=== PATIENT | female | born 1965 | race Caucasian/White ===

== ENCOUNTER 2019-12-24 09:32 | Inpatient (IN) | payer OTHER ==
[~2019-12-24] VITALS: Ht 165.1 cm; Wt 90.4 kg
[2019-12-24 11:08] LABS: HEMATOCRIT 54.4 % (36.0-47.0); HEMOGLOBIN 17.4 g/dl (12.0-15.5); MEAN CORPUSCULAR HEMOGLOBIN 27.8 pg (27.0-33.0); PLATELET COUNT, AUTOMATED 319 10^3/uL (150-450); RED BLOOD COUNT 6.25 10^6/uL (4.00-5.40); WHITE BLOOD COUNT 11.3 10^3/uL (4.0-10.0)
[2019-12-24] MEDS ORDERED: NS 1,000 ML IV ONE (11:30)
[2019-12-24 11:31] LABS: BLOOD UREA NITROGEN 17 MG/DL (7-18); CARBON DIOXIDE LEVEL 24 MEQ/L (21-32); CHLORIDE LEVEL 105 MEQ/L (98-107); CREATININE FOR GFR 0.64 MG/DL (0.55-1.30); GLOMERULAR FILTRATION RATE > 60.0 (>51); GLUCOSE, FASTING 140 MG/DL (70-100); POTASSIUM SERUM 4.4 MEQ/L (3.5-5.1); SODIUM LEVEL 138 MEQ/L (136-145)
--- NOTE | 2019-12-24 11:39 | REP ---
INDICATION: vertigo. COMPARISON: None. TECHNIQUE: Helical scanning is acquired. 5 mm axial images were reformatted. Coronal MPR images were generated. FINDINGS: Bone window settings show mild vascular calcification in the carotid siphons. No intraorbital abnormality is seen. No bony destructive lesion is seen. There is no CT evidence of paranasal sinus disease although aeration in the right mastoid is less than that in the left. On soft tissue window settings, there are multifocal areas of white matter hypointensity fairly extensively in the frontal and parietal lobes bilaterally. There is focal low density in the left basal ganglia and in the left temporal lobe periventricular white matter. There is no evidence of intracranial hemorrhage or mass. No extra-axial fluid collection or midline shift is seen. IMPRESSION: Multifocal white matter low-density lesions in the frontal lobes, parietal lobes and left temporal lobe. There is also focal low-density area in the basal ganglia on the left. These are nonspecific. There is slight vascular calcification. Differential possibilities include small vessel atherosclerotic changes as well as demyelinating disease. Is difficult to exclude subacute lacunar infarction in the basal ganglia and periventricular white matter of the left temporal lobe. Consider MRI scanning.. <Electronically signed by Perez Demarco > 12/24/19 [id number]
[2019-12-24] MEDS ORDERED: PROHANCE 279.3MG/ML 15ML VIAL As Ordered ONE (15:31)
--- NOTE | 2019-12-24 16:31 | REP ---
INDICATION: vertigo, demylinating disease. COMPARISON: None. TECHNIQUE: Axial and sagittal imaging planes are utilized for T1 and T2-weighted scans. Sequences include spin-echo, fast spin echo, FLAIR, and diffusion weighted sequences. IV contrast could not be given Cuzick patient was unable to complete the examination. FINDINGS: No bony calvarial lesion is seen. Craniocervical junction and upper cervical cord are normal in appearance. There is no MR evidence of significant paranasal sinus disease. No intraorbital abnormality is seen. There is no evidence of intracranial hemorrhage. No extra-axial fluid collection is seen. No mass lesion is observed. There are fairly extensive areas of periventricular white matter T2 hyperintensity in the frontal lobes bilaterally. There is an area of T2 hyperintensity in the periventricular white matter of the left temporal lobe as well. This area measures approximately 2.6 cm in diameter. Restricted diffusion is seen in this region on diffusion-weighted scans consistent with acute ischemia. No other evidence of restricted diffusion is seen. Exam is otherwise unremarkable. IMPRESSION: Findings consistent with an acute/subacute infarct in the periventricular white matter of the left temporal lobe posteriorly. No evidence of hemorrhage. Small vessel changes. <Electronically signed by Perez Demarco > 12/24/19 [id number]
[2019-12-24] MEDS ORDERED: ASPIRIN 325 MG TAB PO ONE (17:15)
[2019-12-24] MEDS ORDERED: hydrALAZINE 20MG/ML 1ML VIAL (J0360 PER 20MG) IV STA (17:55)
[2019-12-24] MEDS ORDERED: **hydrALAZINE** 10 MG TAB PO PRN (18:00)
[2019-12-24] MEDS ORDERED: NS 1,000 ML IV SCH (18:00)
[2019-12-24] MEDS ORDERED: ISOVUE-370 76% 100ML VIAL As Ordered ONE (18:25)
--- NOTE | 2019-12-24 19:04 | HPEPDOC ---
General Date of Admission Dec 24, 2019 at 17:43 Date of Service: Dec 24, 2019 Chief Complaint The patient is a 54-year-old female admitted with a reason for visit of CVA. Source: Patient History of Present Illness Mrs. Bowman is a 54 year old female who is here for vertigo and malaise. She hasn't seen a physician in years and does not take any medication. A couple days ago, she started to have vertigo, malaise, and overall feeling weak. She describes the vertigo as a spinning sensation with associated double vision. When she arrived to the ED, they had physical therapy work with her vertigo which did help. They ordered a CT head, which demonstrated multifocal white zack er low-density lesions in the frontal lobe, parietal lobes, and left temporal lobe. There is also focal low density area in the basal ganglia on the left. These are nonspecific and differential included small vessel atherosclerotic changes as well as demyelinating disease. Neurology was contacted by ED. Recommended vasculitis workup, hypercoagulable workup, transesophageal echocardiogram, and MRI without followed by with contrast. Patient was not able to complete contrast study due to claustrophobia. MRI did demonstrate an acute/subacute infarct in the periventricular white matter of the left temporal lobe posteriorly. Home Medications No Active Prescriptions or Reported Meds Allergies Coded Allergies: No Known Drug Allergies (Verified Allergy, Unknown, 12/24/19) Past Medical History Medical History Denies past medical history. Denies any diabetes, heart disease, or lung disease Surgical History Denies past surgical history Family History Both mother and father has history of heart disease Social History * Smoker: current smoker (smoked for 20 years, 1 pack per day) Alcohol: Denies Drugs: denies A-FIB/CHADSVASC A-FIB History Current/History of A-Fib/PAF?: No Review of Systems Constitutional: Denies: Chills, Fever Eyes: Reports: Vision change (double vision when she has the vertigo) ENT: Denies: Head Aches Skin: Denies: Rash Pulmonary: Denies: Dyspnea, Cough Cardiovascular: Denies: Chest Pain Gastrointestinal: Denies: Nausea, Vomiting, Abdominal Pain, Diarrhea, Constipation Genitourinary: Denies: Dysuria Hematologic: Denies: Bruising Neurological: Reports: Other Symptoms (vertigo) Physical Examination General Exam: Positive: Alert, Cooperative Eye Exam: Positive: EOMI; Negative: Sclera icteric ENT Exam: Positive: Atraumatic Neck Exam: Positive: Supple Chest Exam: Positive: Clear to auscultation; Negative: Rales, Rhonchi, Wheezing Heart Exam: Positive: Rate Normal, Regular Rhythm Abdomen Exam: Positive: Normal bowel sounds, Soft; Negative: Tenderness Extremity Exam: Negative: Cyanosis, Edema Neuro Exam: Positive: Normal Gait, Normal Speech, Strength at 5/5 X4 ext, Cranial Nerves 3-12 NL Psych Exam: Positive: Mental status NL, Mood NL Vital Signs Vital Signs Date Time Temp Pulse Resp B/P (MAP) Pulse Ox O2 Delivery O2 Flow Rate FiO2 12/24/19 17:47 63 95 12/24/19 17:45 97.0 16 184/83 (116) Room Air Laboratory Data Labs 24H Laboratory Tests 2 12/24/19 10:53: Nucleated Red Blood Cells % (auto) 0.0, Anion Gap 9, Glomerular Filtration Rate > 60.0, Calcium Level 10.0 CBC/BMP Laboratory Tests 12/24/19 10:53 Assessment/Plan Mrs. Bowman is a 54 year old female who is here for vertigo and malaise and found to have an ischemic stroke. Neurology has been consulted. Recommended trans- esophageal echocardiogram, vascular workup, and hypercarbic workup. Also recommended maintain systolic blood pressure between 180 and 140. Patient did receive full dose aspirin in the ED. We will continue with 81 mg aspirin daily and high-dose statin. Plan / VTE VTE Prophylaxis Ordered?: Yes Plan Plan 1. CVA -Neurology consulted, recommendations appreciated -Transesophageal echocardiogram -CTA of head since patient cannot tolerate MRI -Received full dose aspirin, continue 81 mg of aspirin daily -High-dose statin -Vascular workup and hypercoagulable workup -Physical therapy 2. Vertigo -Physical therapy 3. Hypertension -Since have recent stroke, maintain systolic blood pressure between 180 and 140 4. Erythrocytosis -On admission hemoglobin was 17.4 -May be concentrated. Continue to follow 5. DVT prophylaxis -SCDs and teds ERNESTO VALDEZ DO Dec 24, 2019 19:04
--- NOTE | 2019-12-24 19:26 | REPVR ---
PROCEDURE INFORMATION: Exam: CT Angiography Head With Contrast Exam date and time: 12/24/2019 6:37 PM Age: 54 years old Clinical indication: Pain; Headache; Additional info: CVA, unable to complete mri with contrast TECHNIQUE: Imaging protocol: Computed tomography angiography of the head with intravenous contrast. 3D rendering (Not supervised by radiologist): MIP and/or 3D reconstructed images were created by the technologist. Radiation optimization: All CT scans at this facility use at least one of these dose optimization techniques: automated exposure control; mA and/or kV adjustment per patient size (includes targeted exams where dose is matched to clinical indication); or iterative reconstruction. Contrast material: ISO 370; Contrast volume: 75 ml; Contrast route: INTRAVENOUS (IV); COMPARISON: CT Head without contrast 12/24/2019 11:03 AM FINDINGS: ANTERIOR CIRCULATION: Right internal carotid artery: Mild calcification involving the right carotid siphon without significant stenosis. Right middle cerebral artery: Unremarkable. No occlusion or significant stenosis. No aneurysm. Right anterior cerebral artery: Unremarkable. No occlusion or significant stenosis. No aneurysm. Left internal carotid artery: Mild calcification involving the left carotid siphon without significant stenosis. Left middle cerebral artery: Unremarkable. No occlusion or significant stenosis. No aneurysm. Left anterior cerebral artery: Unremarkable. No occlusion or significant stenosis. No aneurysm. POSTERIOR CIRCULATION: Right vertebral artery: Unremarkable. No occlusion or significant stenosis. No aneurysm. Left vertebral artery: Unremarkable. No occlusion or significant stenosis. No aneurysm. Basilar artery: Unremarkable. No occlusion or significant stenosis. No aneurysm. Right posterior cerebral artery: Unremarkable. No occlusion or significant stenosis. No aneurysm. Left posterior cerebral artery: Unremarkable. No occlusion or significant stenosis. No aneurysm. Brain: Left temporal ischemic infarct is better demonstrated on MRI. Cerebral ventricles: Normal. No ventriculomegaly. Bones/joints: Unremarkable. No acute fracture. Soft tissues: Unremarkable. IMPRESSION: No hemodynamically significant stenosis or large vessel occlusion. Electronically signed by: Del Dubois On 12/24/2019 19:25:56 PM
[2019-12-24 19:51] LABS: C REACTIVE PROTEIN QUANTITATIV 0.83 MG/DL (0.00-0.30)
[2019-12-24 20:30] VITALS: BP 118/65
--- NOTE | 2019-12-24 20:43 | ECGEPIP ---
[facility] - ED Test Date: 2019-12-24 Pat Name: SUJIT ANN Department: Room: - Gender: Female Planner: PRABHU : [id number] Requested By: STERLING Hudson Order Number: [id number] Reading MD: Sterling Carrasco Measurements Intervals [place] Rate: 85 P: 57 WA: 144 QRS: 7 QRSD: 102 T: 31 QT: 393 QTc: 468 Interpretive Statements SINUS RHYTHM Delayed anterior R wave progression Comparison tracing not on file Electronically Signed on 12-24-2019 20:42:48 EST by Sterling Carrasco
[2019-12-24] MEDS: ATORVASTATIN 20 MG TAB PO SCH (20:46)
[2019-12-25] MEDS ORDERED: ACETAMINOPHEN TAB 650MG DOSE (2X325MG) PO PRN (01:45)
[2019-12-25 02:00] VITALS: BP 143/71
[2019-12-25 06:00] VITALS: BP 132/57
[2019-12-25] MEDS: ASPIRIN 81 MG CHEW TABLET PO SCH (08:31)
[2019-12-25 10:00] VITALS: BP 138/59
[2019-12-25 14:00] VITALS: BP 143/60
[2019-12-25] MEDS ORDERED: SUGAMMADEX SODIUM 500 MG/5 ML VIAL (BRIDION) As Ordered ONE (15:21)
[2019-12-25] MEDS ORDERED: ONDANSETRON 4MG/2ML VIAL As Ordered ONE (15:21)
[2019-12-25] MEDS ORDERED: ROCURONIUM BROMIDE 50 MG/5 ML VIAL As Ordered ONE (15:21)
[2019-12-25] MEDS ORDERED: propofoL 200 MG/20 ML VIAL As Ordered ONE ×3 (15:21→18:28)
[2019-12-25] MEDS ORDERED: dexameTHASONE 4 MG/ML 1ML VIAL (J1100 PER 1MG) As Ordered ONE (15:21)
[2019-12-25] MEDS ORDERED: fentaNYL 100 MCG/2 ML INJECTION (J3010) As Ordered ONE ×2 (15:22→17:22)
[2019-12-25] MEDS ORDERED: MIDAZOLAM INJ 2MG/2ML VIAL (J2250 PER 1MG) As Ordered ONE ×2 (15:22→17:21)
[2019-12-25] MEDS ORDERED: LIDOCAINE 2% 100MG/5ML SDV (FOR ANES.) As Ordered ONE ×2 (15:24→17:25)
--- NOTE | 2019-12-25 15:33 | IPNPDOC ---
Subjective Date Seen The patient was seen on 12/25/19. Subjective Chief Complaint/HPI Mrs. Bowman is a 54 year old female who is here for vertigo and malaise and found to have acute/subacute infarct in the periventricular which matter of the left temporal lobe posteriorly. Today, she still had some vertigo, but not as severe as yesterday. Denies fever, chest pain, dyspnea, or dysuria. She tells me she has not yet had a BM in a week. Otherwise, she is scheduled for AGUSTIN today. Objective Physical Examination General Exam: Positive: Alert, Cooperative Eye Exam: Positive: EOMI; Negative: Sclera icteric ENT Exam: Positive: Atraumatic Neck Exam: Positive: Supple Chest Exam: Positive: Clear to auscultation; Negative: Rales, Rhonchi, Wheezing Heart Exam: Positive: Rate Normal, Regular Rhythm Abdomen Exam: Positive: Normal bowel sounds, Soft; Negative: Tenderness Extremity Exam: Negative: Cyanosis, Edema Neuro Exam: Positive: Normal Gait, Normal Speech, Strength at 5/5 X4 ext, Cr anial Nerves 3-12 NL Psych Exam: Positive: Mental status NL, Mood NL Assessment /Plan Assessment Mrs. Bowman is a 54 year old female who is here for vertigo and malaise and found to have an ischemic stroke. Neurology has been consulted. Recommended trans- esophageal echocardiogram, vascular workup, and hypercarbic workup. Also recommended maintain systolic blood pressure between 180 and 140. Patient did receive full dose aspirin in the ED. We will continue with 81 mg aspirin daily and high-dose statin. Plan/VTE VTE Prophylaxis Ordered?: Yes Plan 1. CVA -Neurology consulted, recommendations appreciated -Transesophageal echocardiogram scheduled today -CTA of head since patient cannot tolerate MRI. CTA of head is negative for stenosis or large vessel occlusion -Received full dose aspirin in ED, continue 81 mg of aspirin daily -High-dose statin -Vascular workup and hypercoagulable workup pending -Cleared physical therapy. Will need a script for 2WW and outpatient vestibular PT. 2. Vertigo -Physical therapy 3. Hypertension -Since have recent stroke, maintain systolic blood pressure between 180 and 140 4. Erythrocytosis -On admission hemoglobin was 17.4 -May be concentrated. Continue to follow 5. DVT prophylaxis -SCDs and teds Dispo: Pending AGUSTIN and neurology recommendations. On discharge, will need a script for 2WW and outpatient vestibular PT. VS, I&O, 24H, Fishbone Vital Signs/I&O Vital Signs Date Time Temp Pulse Resp B/P (MAP) Pulse Ox O2 Delivery O2 Flow Rate FiO2 12/25/19 14:00 98.3 70 17 143/60 (87) 98 Room Air I&O- Last 24 Hours up to 6 AM 12/25/19 05:59 Intake Total 1430 ml Output Total 200 ml Balance 1230 ml Laboratory Data 24H LABS Laboratory Tests 2 12/24/19 19:03: Erythrocyte Sedimentation Rate 6 12/25/19 10:21: Coronavirus (COVID-19)(PCR) NEGATIVE ERNESTO VALDEZ DO Dec 25, 2019 15:33
[2019-12-25] MEDS ORDERED: MIRALAX *UNIT DOSE* 17GM PACKET PO PRN (15:45)
[2019-12-25] MEDS ORDERED: LIDOCAINE VISCOUS 2% SOLN 15ML UDC As Ordered ONE (17:28)
[2019-12-25] MEDS ORDERED: CETACAINE SPRAY 5GM As Ordered ONE (17:28)
[2019-12-25] MEDS ORDERED: ISOVUE-370 76% 100ML VIAL As Ordered ONE (19:27)
[2019-12-25 19:42] VITALS: BP 154/61
[2019-12-25] MEDS ORDERED: SODIUM CHLORIDE 0.9% 1000ML IV ONE (21:15)
[2019-12-25] MEDS: ATORVASTATIN 20 MG TAB PO SCH (21:28)
[2019-12-25] MEDS: DOCUSATE SODIUM 100 MG CAP PO SCH (21:28)
[2019-12-25 22:00] VITALS: BP 149/65
--- NOTE | 2019-12-25 23:09 | REPVR ---
PROCEDURE INFORMATION: Exam: CT Angiography Neck With Contrast Exam date and time: 12/25/2019 7:32 PM Age: 54 years old Clinical indication: Other: Stroke TECHNIQUE: Imaging protocol: Computed tomography angiography of the neck with intravenous contrast. 3D rendering (Not supervised by radiologist): MIP and/or 3D reconstructed images were created by the technologist. Radiation optimization: All CT scans at this facility use at least one of these dose optimization techniques: automated exposure control; mA and/or kV adjustment per patient size (includes targeted exams where dose is matched to clinical indication); or iterative reconstruction. Contrast material: ISOVUE 370; Contrast volume: 75 ml; Contrast route: INTRAVENOUS (IV); COMPARISON: CT ANGIO HEAD 2019-12-24 18:25 FINDINGS: Right common carotid artery: Mild atherosclerotic plaque in the predominately distal right common carotid artery and the bifurcation. Right internal carotid artery: Mild atherosclerotic plaque in the carotid bulb and proximal right internal carotid artery with less than 50% stenosis by NASCET criteria. Right external carotid artery: Mild atherosclerotic plaque at the right external carotid artery origin. Right vertebral artery: No stenosis. No dissection or occlusion. Left common carotid artery: Mild atherosclerotic plaque in the predominately distal left common carotid artery and the bifurcation. Left internal carotid artery: Mild atherosclerotic plaque in the proximal left internal carotid artery and carotid bulb with less than 50% stenosis by NASCET criteria. Left external carotid artery: Mild atherosclerotic plaque at the left external carotid artery origin. Left vertebral artery: No stenosis. No dissection or occlusion. Bones/joints: No acute fracture. Soft tissues: Normal. No significant soft tissue swelling. IMPRESSION: Mild bilateral proximal ICA atherosclerotic disease with less than 50% stenosis. REFERENCES: NASCET CRITERIA. The degree of internal carotid artery stenosis is based on NASCET criteria. Normal is no stenosis. Mild is less than 50% stenosis. Moderate is 50-69% stenosis. Severe is 70% to 99% stenosis. Total occlusion is no detectable patent lumen. Electronically signed by: Sterling Paige On 12/25/2019 23:09:36 PM
[2019-12-26 06:00] VITALS: BP 155/88
[2019-12-26 06:24] LABS: HEMATOCRIT 49.2 % (36.0-47.0); HEMOGLOBIN 15.6 g/dl (12.0-15.5); MEAN CORPUSCULAR HEMOGLOBIN 27.3 pg (27.0-33.0); MEAN CORPUSCULAR HGB CONC 31.7 g/dl (32.0-36.5); MEAN CORPUSCULAR VOLUME 86.2 fl (80.0-96.0); PLATELET COUNT, AUTOMATED 289 10^3/uL (150-450); RED BLOOD COUNT 5.71 10^6/uL (4.00-5.40); WHITE BLOOD COUNT 8.9 10^3/uL (4.0-10.0)
[2019-12-26 06:48] LABS: BLOOD UREA NITROGEN 13 MG/DL (7-18); CARBON DIOXIDE LEVEL 24 MEQ/L (21-32); CHLORIDE LEVEL 109 MEQ/L (98-107); CREATININE FOR GFR 0.54 MG/DL (0.55-1.30); GLOMERULAR FILTRATION RATE > 60.0 (>51); GLUCOSE, FASTING 97 MG/DL (70-100); POTASSIUM SERUM 3.6 MEQ/L (3.5-5.1); SODIUM LEVEL 139 MEQ/L (136-145)
[2019-12-26] MEDS: DOCUSATE SODIUM 100 MG CAP PO SCH (09:33)
[2019-12-26] MEDS: ASPIRIN 81 MG CHEW TABLET PO SCH (09:33)
[2019-12-26] MEDS ORDERED: ASPI81CH8 PO (09:43)
[2019-12-26] MEDS ORDERED: AMLO1TAB24 PO (09:43)
[2019-12-26] MEDS ORDERED: ATOR80TA59 PO (09:43)
[2019-12-26] MEDS ORDERED: PEG1POW PO (09:43)
[2019-12-26] MEDS ORDERED: DOCU100C16 PO (09:43)
[2019-12-26 09:48] LABS: INR 0.96
[2019-12-26 09:50] LABS: PARTIAL THROMBOPLASTIN TIME 28.6 SECONDS (24.2-38.5)
--- NOTE | 2019-12-26 13:38 | T-ECHO ---
DATE OF PROCEDURE: 12/25/2019 REFERRING PHYSICIAN: Dr. Rainer Gross INDICATION: Stroke. PROCEDURE: Transesophageal echocardiogram. PROCEDURALIST: Mk Sanderson MD ANESTHESIOLOGY: Torrey Sorenson CRNA and Michael Cruz M.D. ANESTHESIA: Ms. Bowman is a 54-year-old female who presented with cerebrovascular accident. I was asked by the attending physician to perform transesophageal echocardiogram to evaluate for potential cardiac cause of emboli. I spoke with the patient shortly before the procedure and I explained the rationale and potential findings and complications. She signed appropriate consent. Procedure was performed in the operating room. PROCEDURE NOTE: The patient was in a fasting condition. Her posterior pharynx was anesthetized using viscous lidocaine and Cetacaine spray. After appropriate time-out was taken and all monitors were applied, she was positioned in left lateral decubitus position. Probe was then introduced into esophagus with significant degree of difficulty. Initially, we had problems with the patient obstructing her airway with fairly minimal tilting head forward, eventually the probe was past, while she had nasal airway in place and she was positioned by anesthesiology with chin and head extension. After the appropriate images were taken, the probe was withdrawn. There were no immediate complications and the patient tolerated the procedure well. FINDINGS: The patient has normal left ventricular systolic function with estimated ejection fraction (EF) around 60 to 65%. There were no wall motion abnormalities identified. Right ventricle also appears normal. Both atria are normal size. All four cardiac valves were reasonably well seen and appear normal. They are all competent without any stenosis or significant insufficiency. Atrial septum is redundant. There is evidence for atrial septal aneurysm, but no evidence of PFO. Injection of agitated saline did not reveal shunt across intraatrial or intraventricular septum. There is normal flow in right-sided pulmonary veins. Left atrial appendage is rather large. On some images it appeared that there might be small thrombus, but on further inspection, I believe that it most likely represents just an artifact due to fold of the wall. There is minimal atherosclerosis in the thoracic aorta. CONCLUSIONS: 1. Preserved left ventricular systolic function. 2. No valvular disease. 3. Normal pulmonary venous flow. 4. Left atrial appendage free of thrombus. 5. Trivial thoracic atherosclerosis. 6. Atrial septal aneurysm, but no evidence for PFO and no evidence of intracardiac shunt. [facility]
--- NOTE | 2019-12-26 19:37 | DS.PDOC ---
Discharge Summary General Date of Admission Dec 24, 2019 at 17:43 Date of Discharge Dec 26, 2019 Attending Physician: ERNESTO VALDEZ DO Specialist/Consultants [facility] Neu[facility], Dr. Lawrence Discharge Summary PROCEDURES PERFORMED DURING STAY: Echocardiogram ADMITTING DIAGNOSES: 1. CVA 2. Vertigo 3. Hypertension 4. Erythrocytosis DISCHARGE DIAGNOSES: 1. CVA 2. Vertigo 3. Hypertension 4. Erythrocytosis COMPLICATIONS/CHIEF COMPLAINT: CVA. HISTORY OF PRESENT ILLNESS: Mrs. Bowman is a 54 year old female who is here for vertigo and malaise. She hasn't seen a physician in years and does not take any medication. A couple days ago, she started to have vertigo, malaise, and overall feeling weak. She describes the vertigo as a spinning sensation with associated double vision. When she arrived to the ED, they had physical therapy work with her vertigo which did help. They ordered a CT head, which demonstrated multifocal white matter low-density lesions in the frontal lobe, parietal lobes, and left temporal lobe. There is also focal low density area in the basal ganglia on the left. These are nonspecific and differential included small vessel atherosclerotic changes as well as demyelinating disease. Neurology was contacted by ED. Recommended vasculitis workup, hypercoagulable workup, transesophageal echocardiogram, and MRI without followed by with contrast. Patient was not able to complete contrast study due to claustrophobia. MRI did demonstrate an acute/subacute infarct in the periventricular white matter of the left temporal lobe posteriorly. HOSPITAL COURSE: During her hospitalization, she had CTA of head and neck which was negative as well as an echocardiogram which was negative for PFO. Tele monitor did not demonstrate any PFO. Vasculitis and hypercoagulable work up was ordered. Pending results at this time. Otherwise, she worked with physical therapy. The recommended a 2 wheel rolling walker and physical rehab for ambulation and vertigo. She felt that the rehab for vertigo was helpful. This morning, she still had a little bit of vertigo, but better than before. Denies any fever/chills, chest pain, dyspnea, abdominal pain, or dysuria. She felt ready for home and was subsequently discharged home. DISCHARGE MEDICATIONS: Please see below. ALLERGIES: Please see below. PHYSICAL EXAMINATION ON DISCHARGE: VITAL SIGNS: Please see below. GENERAL: Comfortable, in no apparent distress. HEENT: Head normocephalic/atraumatic, EOMI, sclera clear. NECK: Supple, no JVD. RESPIRATORY: Lungs clear to auscultation bilaterally, no rales, wheeze or rhonchi. CARDIOVASCULAR: Regular rate and rhythm. ABDOMEN: Soft, nontender, no guarding or rebound tenderness. Normal bowel sounds. MUSCLE SKELETAL: No pitting edema NEUROLOGICAL: CN 312 grossly intact PSYCHOLOGICAL: Normal mood and affect LABORATORY DATA: Please see below. IMAGING: CT head Multifocal white matter low-density lesions in the frontal lobes, parietal lobes and left temporal lobe. There is also focal low-density area in the basal ganglia on the left. These are nonspecific. There is slight vascular calcification. Differential possibilities include small vessel atherosclerotic changes as well as demyelinating disease. Is difficult to exclude subacute lacunar infarction in the basal ganglia and periventricular white matter of the left temporal lobe. Consider MRI scanning.. MRI brain Findings consistent with an acute/subacute infarct in the periventricular white matter of the left temporal lobe posteriorly. No evidence of hemorrhage. Small vessel changes. CT angiogram of head No hemodynamically significant stenosis or large vessel occlusion. CT angiogram of neck Mild bilateral proximal ICA atherosclerotic disease with less than 50% stenosis. Echocardiogram 1. Preserved left ventricular systolic function. 2. No valvular disease. 3. Normal pulmonary venous flow. 4. Left atrial appendage free of thrombus. 5. Trivial thoracic atherosclerosis. 6. Atrial septal aneurysm, but no evidence for PFO and no evidence for intr acardiac shunt. PROGNOSIS: Stable ACTIVITY: Walk with walker DIET: As tolerated DISCHARGE PLAN: Home DISPOSITION: 01 Home, Self-Care. DISCHARGE INSTRUCTIONS: 1. Follow-up with her PCP within a week 2. Follow-up with neurology within a week DISCHARGE CONDITION: Stable. Total time spent on discharge planning, discharge summary, and medication reconciliation: 45 minutes Vital Signs/I&Os Vital Signs Date Time Temp Pulse Resp B/P (MAP) Pulse Ox O2 Delivery O2 Flow Rate FiO2 12/26/19 06:00 98.6 71 20 155/88 (110) 94 12/25/19 19:42 Room Air 12/25/19 18:45 10 I&O- Last 24 Hours up to 6 AM 12/26/19 06:00 Intake Total 1205 ml Output Total 700 ml Balance 505 ml Laboratory Data Labs 24H Laboratory Tests 2 12/26/19 06:10: Nucleated Red Blood Cells % (auto) 0.0, Anion Gap 6L, Glomerular Filtration Rate > 60.0, Calcium Level 9.0 12/26/19 09:13: Prothrombin Time 13.0, Prothromb Time International Ratio 0.96, Activated Partial Thromboplast Time 28.6 CBC/BMP Laboratory Tests 12/26/19 06:10 Discharge Medications Scheduled Amlodipine Besylate (Amlodipine Besylate) 5 Mg Tablet, 5 MG PO DAILY Aspirin (Children's Aspirin) 81 Mg Tab.chew, 81 MG PO DAILY Atorvastatin Calcium (Atorvastatin Calcium) 80 Mg Tablet, 80 MG PO DAILY Docusate Sodium (Docusate Sodium) 100 Mg Capsule, 100 MG PO BID Scheduled PRN Polyethylene Glycol 3350 (Polyethylene Glycol 3350) 17 Gm Powd.pack, 1 PKT PO DAILYPRN PRN for CONSTIPATION Allergies Coded Allergies: No Known Drug Allergies (Verified Allergy, Unknown, 12/24/19) ERNESTO VALDEZ DO Dec 26, 2019 19:37
== END 2019-12-26 11:56 | disposition home or self-care (01) | DRG 66 ==
LOC: M ED 09:32 → M ED INP 17:43 → M MSPAV 20:29
PROVIDERS: ADMIT Internal Medicine; ATTEND Internal Medicine
PROC: B246ZZ4 Ultrasonography of Right and Left Heart, Transesophageal (ICD-10-PCS; principal; 2019-12-25 09:18)
DX: I63.532 Cerebral infarction due to unspecified occlusion or stenosis of left posterior cerebral artery (principal); F17.200 Nicotine dependence, unspecified, uncomplicated; I10 Essential (primary) hypertension; R42 Dizziness and giddiness; D75.1 Secondary polycythemia